=== PATIENT | female | born 1950 | race African-American/Black ===

== ENCOUNTER 2016-10-14 23:36 | Emergency (ER) | payer MEDICARE ==
[~2016-10-14] VITALS: Ht 157.5 cm; Wt 102.8 kg
[2016-10-14 23:38] VITALS: BP 132/84
[2016-10-15] MEDS ORDERED: ALBUTEROL/IPRATROPIUM 2.5MG/0.5MG, 3 ML NPPB ONE
[2016-10-15] MEDS ORDERED: ALBUTEROL/IPRATROPIUM 2.5MG/0.5MG, 3 ML ONE (00:09)
== END 2016-10-15 00:52 | disposition home or self-care (01) ==
LOC: ED 23:59
DX: J20.9 Acute bronchitis, unspecified (principal); Z88.1 Allergy status to other antibiotic agents; Z90.710 Acquired absence of both cervix and uterus; Z88.8 Allergy status to other drugs, medicaments and biological substances
CPT/HCPCS: 71020; 94640; 99284; J7620

== ENCOUNTER 2016-12-04 15:51 | Emergency (ER) | payer MEDICARE ==
[~2016-12-04] VITALS: Ht 157.5 cm; Wt 103.8 kg
[2016-12-04 15:53] VITALS: BP 155/81
[2016-12-04] MEDS ORDERED: OMEP-110 PO (17:10)
[2016-12-04] MEDS ORDERED: ATEN25TA PO (17:10)
== END 2016-12-04 17:58 | disposition home or self-care (01) ==
LOC: ED 17:52
DX: I80.02 Phlebitis and thrombophlebitis of superficial vessels of left lower extremity (principal); M79.662 Pain in left lower leg
CPT/HCPCS: 99284

== ENCOUNTER 2017-03-22 10:35 | Emergency (ER) | payer MEDICARE ==
[~2017-03-22] VITALS: Ht 157.5 cm; Wt 105.0 kg
[~2017-03-22 10:35] MED LIST: ATEN25TA PO; OMEP-110 PO
[2017-03-22 11:24] LABS: HEMATOCRIT 45.6 % (34.6-47.8); WHITE BLOOD COUNT 8.6 x10^3/uL (3.4-10)
[2017-03-22] MEDS ORDERED: SODIUM CHLORIDE FLUSH 10ML SYR IVF ONE (11:30)
[2017-03-22 11:36] LABS: BLOOD UREA NITROGEN 16 mg/dL (7-18)
[2017-03-22 11:42] LABS: IS PT STATUS REG ER OR PRE ER? YES
[2017-03-22 12:45] VITALS: BP 128/69
== END 2017-03-22 12:47 | disposition home or self-care (01) ==
LOC: ED 11:02
DX: R55 Syncope and collapse (principal); R42 Dizziness and giddiness; Z88.1 Allergy status to other antibiotic agents
CPT/HCPCS: 36415; 71010; 80048; 82040; 83880; 84484; 85025; 93005; 99285

== ENCOUNTER 2018-11-24 17:38 | Emergency (ER) | payer MEDICARE ==
[~2018-11-24] VITALS: Ht 157.5 cm; Wt 105.7 kg
[2018-11-24 19:18] LABS: BASOPHILS # (AUTO) 0.03 x10^3/uL (0-0.1); BASOPHILS % (AUTO) 0 % (0-1); EOSINOPHILS # (AUTO) 0.27 x10^3/uL (0-0.4); EOSINOPHILS % (AUTO) 3 % (1-7); LYMPHOCYTES # (AUTO) 1.67 x10^3/uL (1-3.4); LYMPHOCYTES % (AUTO) 17 % (22-44); MD NO; MEAN CORPUSCULAR HGB CONC 32.1 g/dL (32.4-35.8); MEAN CORPUSCULAR VOLUME 90.4 fL (80-100); MONOCYTES # (AUTO) 1.01 x10^3/uL (0.2-0.8); MONOCYTES % (AUTO) 10 % (2-9); NEUTROPHILS # (AUTO) 6.83 x10^3/uL (1.8-6.8); NEUTROPHILS % (AUTO) 70 % (42-75); PLATELET COUNT 222 x10^3/uL (130-400); RED BLOOD COUNT 5.17 x10^6/uL (3.82-5.3)
--- NOTE | 2018-11-24 19:24 | NUR ---
pt to room from lobby
[2018-11-24 19:29] LABS: ALANINE AMINOTRANSFERASE 17 U/L (12-78); ALBUMIN 3.6 g/dL (3.4-5.0); ANION GAP 5 mmol/L (5-15); CALCIUM 8.6 mg/dL (8.5-10.1); CHLORIDE 108 mmol/L (98-107); CREATININE 0.93 mg/dL (0.55-1.02)
[2018-11-24 19:36] LABS: ALKALINE PHOSPHATASE 75 U/L (45-117); BILIRUBIN,TOTAL 0.4 mg/dL (0.2-1.0); TOTAL PROTEIN 7.7 g/dL (6.4-8.2); TROPONIN I < 0.015 ng/mL (0.000-0.045)
[2018-11-24 19:46] VITALS: BP 148/77
[2018-11-24] MEDS ORDERED: KETOROLAC 30 MG/1 ML ONE (19:55)
[2018-11-24] MEDS ORDERED: KETOROLAC 30 MG/1 ML IM ONE (20:00)
== END 2018-11-24 21:10 | disposition home or self-care (01) ==
LOC: ED 20:30
DX: R07.89 Other chest pain (principal); I10 Essential (primary) hypertension
CPT/HCPCS: 36415; 71045; 80053; 84484; 85025; 93005; 96372; 99284; J1885

== ENCOUNTER 2019-11-07 15:52 | Emergency (ER) | payer MEDICARE ==
[~2019-11-07] VITALS: Ht 157.5 cm; Wt 103.8 kg
--- NOTE | 2019-11-07 16:16 | NUR ---
CLEATER. DISCUSSED PT SYMPTOMS WITH ACE BELLO TO SEE FIRST.
[2019-11-07 16:40] LABS: MICROSCOPIC NOT IND
--- NOTE | 2019-11-07 16:40 | NUR ---
AWOKE FROM [place] TODAY SHAKY AND LIGHTHEADED, FEELING LIKE GOING TO PASS OUT. AMBULATED TO BATHROOM WITHOUT ASSISTANCE, STEADY GAIT
[2019-11-07 17:01] LABS: BASOPHILS # (AUTO) 0.01 x10^3/uL (0-0.1); BASOPHILS % (AUTO) 0 % (0-1); EOSINOPHILS # (AUTO) 0.13 x10^3/uL (0-0.4); EOSINOPHILS % (AUTO) 1 % (1-7); LYMPHOCYTES # (AUTO) 1.18 x10^3/uL (1-3.4); LYMPHOCYTES % (AUTO) 11 % (22-44); MD NO; MEAN CORPUSCULAR HEMOGLOBIN 28.8 pg (27.0-34.8); MEAN CORPUSCULAR HGB CONC 32.4 g/dL (32.4-35.8); MEAN CORPUSCULAR VOLUME 89.1 fL (80-100); MEAN PLATELET VOLUME 10.3 fL (7.4-10.4); MONOCYTES % (AUTO) 6 % (2-9); NEUTROPHILS # (AUTO) 8.45 x10^3/uL (1.8-6.8); NEUTROPHILS % (AUTO) 82 % (42-75); PLATELET COUNT 207 x10^3/uL (130-400); RED CELL DISTRIBUTION WIDTH 13.9 % (9.6-15.2)
[2019-11-07 17:09] LABS: ANION GAP 7 mmol/L (5-15); CALCIUM 8.3 mg/dL (8.5-10.1); CHLORIDE 108 mmol/L (98-107); CREATININE 1.07 mg/dL (0.55-1.02)
[2019-11-07 17:24] VITALS: BP 147/72
--- NOTE | 2019-11-07 17:24 | NUR ---
PT AMBULATED DOWN HALLS WITHOUT ASSISTANCE. DENIES LIGHTHEADEDNESS BUT FEELS PULSATING BLOOD VESSEL IN NECK.
== END 2019-11-07 18:17 | disposition home or self-care (01) ==
LOC: ED 17:30
DX: R55 Syncope and collapse (principal); E11.9 Type 2 diabetes mellitus without complications; R00.0 Tachycardia, unspecified
CPT/HCPCS: 36415; 80048; 81003; 85025; 93005; 99284

== ENCOUNTER 2019-11-14 12:57 | Emergency (ER) | payer MEDICARE ==
[~2019-11-14] VITALS: Ht 157.5 cm; Wt 105.5 kg
[2019-11-14 13:55] LABS: BASOPHILS # (AUTO) 0.01 x10^3/uL (0-0.1); BASOPHILS % (AUTO) 0 % (0-1); EOSINOPHILS # (AUTO) 0.21 x10^3/uL (0-0.4); EOSINOPHILS % (AUTO) 2 % (1-7); LYMPHOCYTES # (AUTO) 1.57 x10^3/uL (1-3.4); LYMPHOCYTES % (AUTO) 17 % (22-44); MD NO; MEAN CORPUSCULAR HEMOGLOBIN 28.7 pg (27.0-34.8); MEAN CORPUSCULAR VOLUME 89.7 fL (80-100); MEAN PLATELET VOLUME 9.8 fL (7.4-10.4); MONOCYTES # (AUTO) 0.97 x10^3/uL (0.2-0.8); MONOCYTES % (AUTO) 11 % (2-9); NEUTROPHILS # (AUTO) 6.43 x10^3/uL (1.8-6.8); NEUTROPHILS % (AUTO) 70 % (42-75); PLATELET COUNT 212 x10^3/uL (130-400); RED BLOOD COUNT 4.89 x10^6/uL (3.82-5.3)
[2019-11-14 14:00] LABS: MICROSCOPIC NOT IND
--- NOTE | 2019-11-14 14:01 | NUR ---
PT STATES SHE IS FEELING "FINE" NOW, HOWEVER STATES "I FELT SO TERRIBLE EARLIER." PT SEEN HERE FOR SAME RECENTLY. PT PLACED ON MONITORS, VSS. URINE COLECTED SENT TO LAB. WILL FOLLOW ORDERS.
[2019-11-14 14:08] LABS: ANION GAP 7 mmol/L (5-15); CALCIUM 8.4 mg/dL (8.5-10.1); CHLORIDE 110 mmol/L (98-107); CREATININE 0.87 mg/dL (0.55-1.02)
[2019-11-14 14:09] LABS: ALANINE AMINOTRANSFERASE 21 U/L (12-78); ALBUMIN 3.3 g/dL (3.4-5.0)
[2019-11-14 14:13] LABS: ALKALINE PHOSPHATASE 76 U/L (45-117); BILIRUBIN,TOTAL 0.4 mg/dL (0.2-1.0); FREE T4 (FREE THYROXINE) 1.05 ng/dL (0.76-1.46); TOTAL PROTEIN 7.3 g/dL (6.4-8.2); TROPONIN I < 0.015 ng/mL (0.000-0.045)
--- NOTE | 2019-11-14 14:39 | NUR ---
PT GIVEN WATER FOR PO CHALLENGE PER ERMD ORDERS.
--- NOTE | 2019-11-14 14:44 | NUR ---
ERMD AT BEDSIDE FOR ASSESSMENT.
--- NOTE | 2019-11-14 15:35 | NUR ---
PT OK FOR D/C. PT UPSET, WANTS TO TALK TO ERMD PRIOR TO D/C. ERMD AWARE.
--- NOTE | 2019-11-14 15:47 | NUR ---
KEVIN ROYAL AT BEDSIDE TO SPEAK WITH PT. PT VERBALIZED UNDERSTANDING OF D/C ORDERS. PT OK WITH D/C, STATES SHE UNDERSTANDS THE PLAN NOW. PT HAS ALL OWN BELONGINGS UPON D/C, STEADY GAIT.
[2019-11-14 15:49] VITALS: BP 139/85
== END 2019-11-14 15:51 | disposition home or self-care (01) ==
LOC: ED 15:37
DX: R55 Syncope and collapse (principal); R42 Dizziness and giddiness; I51.7 Cardiomegaly; E11.9 Type 2 diabetes mellitus without complications; Z90.710 Acquired absence of both cervix and uterus
CPT/HCPCS: 36415; 80053; 81003; 83605; 84439; 84443; 84484; 85025; 93005; 99284

== ENCOUNTER 2020-03-10 10:22 | Inpatient (IN) | payer MEDICARE ==
[~2020-03-10] VITALS: Ht 157.5 cm; Wt 101.5 kg
[2020-03-10 11:25] LABS: BASOPHILS % (AUTO) 0 % (0-1); EOSINOPHILS % (AUTO) 0 % (1-7); LYMPHOCYTES % (AUTO) 13 % (22-44); MEAN CORPUSCULAR HEMOGLOBIN 27.9 pg (27.0-34.8); MEAN CORPUSCULAR HGB CONC 32.1 g/dL (32.4-35.8); MONOCYTES % (AUTO) 13 % (2-9); NEUTROPHILS % (AUTO) 74 % (42-75); PLATELET COUNT 129 x10^3/uL (130-400); RED BLOOD COUNT 5.85 x10^6/uL (3.82-5.3); RED CELL DISTRIBUTION WIDTH 13.9 % (9.6-15.2)
[2020-03-10 11:30] LABS: MD NO
[2020-03-10 11:37] LABS: ALBUMIN 3.1 g/dL (3.4-5.0); ANION GAP 8 mmol/L (5-15); CALCIUM 8.5 mg/dL (8.5-10.1); CHLORIDE 108 mmol/L (98-107)
[2020-03-10 11:38] LABS: CREATININE 1.23 mg/dL (0.55-1.02)
[2020-03-10] MEDS ORDERED: SODIUM CHLORIDE 0.9% 1,000ML IVBOLUS ONE (13:00)
--- NOTE | 2020-03-10 13:00 | NUR ---
Pt arrives to ed for sob and feeling tired. Pt sent from pcp for post covid test. Pt is having hypoxemia and not feeling well. Pt reports otherwise she is healthy. Pt connected to monitor and call light in reach.
--- NOTE | 2020-03-10 13:20 | NUR ---
Room air trial failed, pt started having hypoxemia.
[2020-03-10] MEDS ORDERED: AZITHROMYCIN 500 MG TABLET ONE (13:48)
[2020-03-10] MEDS ORDERED: CEFTRIAXONE PMX 1GM/50ML 50 ML ONE (13:48)
[2020-03-10] MEDS ORDERED: ONDANSETRON 2MG/ML, 2ML ONE (13:49)
[2020-03-10] MEDS ORDERED: SODIUM CHLORIDE FLUSH 10ML SYR IVF PRN (14:00)
[2020-03-10] MEDS ORDERED: CEFTRIAXONE PMX 1GM/50ML 50 ML IVPB ONE (14:00)
[2020-03-10] MEDS ORDERED: AZITHROMYCIN 500 MG TABLET PO ONE (14:00)
[2020-03-10] MEDS ORDERED: EMPA25TA PO (14:02)
--- NOTE | 2020-03-10 14:23 | NUR ---
task rn: pt medicated per jul. pt on phone talking to family
[2020-03-10] MEDS ORDERED: ONDANSETRON 2MG/ML, 2ML IVPush PRN (14:30)
[2020-03-10] MEDS ORDERED: LABETALOL 5MG/ML, 20ML IVPush PRN (14:30)
[2020-03-10] MEDS ORDERED: ACETAMINOPHEN 325 MG TABLET PO PRN (14:30)
[2020-03-10] MEDS ORDERED: SODIUM CHLORIDE 0.9% 1,000 ML IV SCH (14:30)
--- NOTE | 2020-03-10 15:00 | NUR ---
Pt placed on hospital bed
[2020-03-10] MEDS ORDERED: HEPARIN 5,000 UNITS/ML, 1ML ONE (15:11)
[2020-03-10] MEDS: HEPARIN 5,000 UNITS/ML, 1ML SQ SCH (15:19)
--- NOTE | 2020-03-10 17:27 | NUR ---
Pt assited to restroom. Vitals WNL on supplemental O2
[2020-03-10 17:38] LABS: RAPID INFLUENZA A Negative (Negative); RAPID INFLUENZA B Negative (Negative)
--- NOTE | 2020-03-10 18:54 | NUR ---
Report to Berta NEWMAN
[2020-03-10] MEDS ORDERED: OMEPRAZOLE 20 MG CAPSULE.DR ONE (19:18)
[2020-03-10] MEDS ORDERED: ACETAMINOPHEN 325 MG TABLET ONE (19:55)
[2020-03-10] MEDS: OMEPRAZOLE 20 MG CAPSULE.DR PO SCH ×2 (20:01→20:03)
[2020-03-10] MEDS: ATENOLOL 25 MG TABLET PO SCH (20:02)
[2020-03-11 00:03] VITALS: BP 117/67
[2020-03-11] MEDS: HEPARIN 5,000 UNITS/ML, 1ML SQ SCH (03:05)
[2020-03-11 06:14] LABS: BASOPHILS % (AUTO) 0 % (0-1); EOSINOPHILS % (AUTO) 0 % (1-7); LYMPHOCYTES % (AUTO) 22 % (22-44); MEAN CORPUSCULAR HEMOGLOBIN 27.8 pg (27.0-34.8); MEAN CORPUSCULAR HGB CONC 31.6 g/dL (32.4-35.8); MEAN PLATELET VOLUME 10.5 fL (7.4-10.4); MONOCYTES % (AUTO) 15 % (2-9); NEUTROPHILS % (AUTO) 63 % (42-75); PLATELET COUNT 101 x10^3/uL (130-400); RED BLOOD COUNT 5.54 x10^6/uL (3.82-5.3); RED CELL DISTRIBUTION WIDTH 13.8 % (9.6-15.2)
[2020-03-11 06:15] LABS: CHLORIDE 109 mmol/L (98-107)
[2020-03-11 06:21] LABS: MD NO
[2020-03-11 06:22] LABS: ALANINE AMINOTRANSFERASE 23 U/L (12-78); ALBUMIN 2.9 g/dL (3.4-5.0); ALKALINE PHOSPHATASE 56 U/L (45-117); ANION GAP 6 mmol/L (5-15); BILIRUBIN,TOTAL 0.5 mg/dL (0.2-1.0); CALCIUM 8.2 mg/dL (8.5-10.1); CREATININE 0.83 mg/dL (0.55-1.02)
[2020-03-11] MEDS: Empagliflozin (Jardiance) 25 MG) PO SCH (08:00)
[2020-03-11 08:43] VITALS: BP 100/69
[2020-03-11] MEDS: OMEPRAZOLE 20 MG CAPSULE.DR PO SCH ×3 (09:00→20:24)
[2020-03-11] MEDS: ENOXAPARIN 40 MG/0.4 ML SQ SCH (09:00)
[2020-03-11] MEDS: CEFTRIAXONE PMX 1GM/50ML 50 ML IV SCH (09:29)
[2020-03-11] MEDS: ATENOLOL 25 MG TABLET PO SCH ×2 (09:31→20:23)
[2020-03-11] MEDS: AZITHROMYCIN 500 MG in SODIUM CHLORIDE 0.9% 250 ML IV SCH (11:14)
[2020-03-11 12:18] VITALS: BP 110/61
[2020-03-11 20:00] VITALS: BP 105/64
[2020-03-12 01:10] VITALS: BP 132/71
[2020-03-12 07:53] VITALS: BP 104/68
[2020-03-12] MEDS: Empagliflozin (Jardiance) 25 MG) PO SCH (08:00)
[2020-03-12] MEDS: ATENOLOL 25 MG TABLET PO SCH ×2 (08:50→20:43)
[2020-03-12] MEDS: OMEPRAZOLE 20 MG CAPSULE.DR PO SCH ×2 (08:50→20:43)
[2020-03-12] MEDS: ENOXAPARIN 40 MG/0.4 ML SQ SCH (08:50)
[2020-03-12] MEDS: CEFTRIAXONE PMX 1GM/50ML 50 ML IV SCH (08:50)
[2020-03-12] MEDS: AZITHROMYCIN 500 MG in SODIUM CHLORIDE 0.9% 250 ML IV SCH (09:00)
[2020-03-12 14:00] VITALS: BP 117/76
[2020-03-12 19:12] VITALS: BP 141/71
[2020-03-12] MEDS: ENOXAPARIN 30 MG/0.3 ML SQ SCH (20:43)
[2020-03-13 01:18] VITALS: BP 109/64
[2020-03-13 07:14] VITALS: BP 95/57
[2020-03-13] MEDS: Empagliflozin (Jardiance) 25 MG) PO SCH (08:00)
[2020-03-13] MEDS: CEFTRIAXONE PMX 1GM/50ML 50 ML IV SCH (09:01)
[2020-03-13] MEDS: ENOXAPARIN 30 MG/0.3 ML SQ SCH (09:01)
[2020-03-13] MEDS: AZITHROMYCIN 500 MG in SODIUM CHLORIDE 0.9% 250 ML IV SCH (09:01)
[2020-03-13] MEDS: OMEPRAZOLE 20 MG CAPSULE.DR PO SCH (09:01)
[2020-03-13] MEDS: ATENOLOL 25 MG TABLET PO SCH (09:01)
[2020-03-13] MEDS ORDERED: ZINC220C7 PO (12:36)
[2020-03-13] MEDS ORDERED: CEFD300C37 PO (12:36)
[2020-03-13] MEDS ORDERED: AZIT500T10 PO (12:36)
[2020-03-13] MEDS ORDERED: DEXA4TAB PO (12:36)
[2020-03-13] MEDS ORDERED: ASCO500T9 PO (12:36)
[2020-03-13 13:29] VITALS: BP 107/73
== END 2020-03-13 18:34 | disposition home or self-care (01) | DRG 177 ==
LOC: ED 10:48 → SUATTDRO 13:49 → EDIP 14:15 → 4EST 23:52
PROVIDERS: ADMIT Hospitalist; ATTEND Internal Medicine
DX: U07.1 COVID-19 (principal); J96.01 Acute respiratory failure with hypoxia; N17.0 Acute kidney failure with tubular necrosis; J12.89 Other viral pneumonia; I47.1 Supraventricular tachycardia; D69.6 Thrombocytopenia, unspecified; E11.9 Type 2 diabetes mellitus without complications; I10 Essential (primary) hypertension; K21.9 Gastro-esophageal reflux disease without esophagitis; Z90.710 Acquired absence of both cervix and uterus; Z88.1 Allergy status to other antibiotic agents; Z87.891 Personal history of nicotine dependence
CPT/HCPCS: 36415; 71045; 80048; 80053; 82040; 82962; 83605; 85025; 87040; 87400; 87635; 96365; G0378; J0456; J0696; J1644; J1650; J7030; J7050

== ENCOUNTER → 2020-04-29 | Outpatient (CLI) | payer MEDICARE ==
[~2020-04-29] MED LIST changes: +ASCO500T9 PO; +AZIT500T10 PO; +CEFD300C37 PO; +DEXA4TAB PO; +EMPA25TA PO; +ZINC220C7 PO
== END | disposition home or self-care (01) ==
LOC: RAD 13:37
PROVIDERS: ATTEND Family Medicine
DX: M79.662 Pain in left lower leg (principal)

== ENCOUNTER → 2020-06-11 | Outpatient (CLI) | payer MEDICARE | END | disposition home or self-care (01) | LOC: CVU 08:42 | PROVIDERS: ATTEND Internal Medicine Cardiovascular Disease | DX: I08.8 Other rheumatic multiple valve diseases (principal); I42.8 Other cardiomyopathies | CPT/HCPCS: 93306 ==